=== PATIENT | female | born 1970 | race Caucasian/White ===

== ENCOUNTER 2016-05-05 07:30 | Observation (INO) | payer BC ==
[2016-10-14] MEDS ORDERED: ceFAZolin 2 GM/DEXTROSE 100 ML IV ONE (06:00)
[2016-10-14] MEDS ORDERED: LIDOCAINE 1% 5 ML SDV ONE (06:39)
[2016-10-14] MEDS ORDERED: LR 1,000 ML IV ONE (06:57)
[2016-10-14] MEDS ORDERED: LIDOCAINE 1% 5 ML SDV ID PRN (06:57)
[2016-10-14] MEDS ORDERED: MIDAZOLAM 2 MG/2 ML VIAL ONE (07:09)
[2016-10-14] MEDS ORDERED: SCOPOLAMINE HYDROBROMIDE 1.5 MG PATCH TD ONE (07:09)
[2016-10-14] MEDS ORDERED: fentaNYL 250 MCG/5 ML INJ ONE (07:12)
[2016-10-14] MEDS ORDERED: PROPOFOL 200 MG/20 ML VIAL ONE (07:12)
[2016-10-14] MEDS ORDERED: DEXAMETHASONE 4 MG/ML VIAL ONE (07:13)
[2016-10-14] MEDS ORDERED: ONDANSETRON 4 MG/2 ML VIAL ONE (07:13)
[2016-10-14] MEDS ORDERED: LIDOCAINE 2% 5 ML SDV ONE (07:13)
[2016-10-14] MEDS ORDERED: ROCURONIUM 100 MG/10 ML VIAL ONE (07:14)
[2016-10-14] MEDS ORDERED: VASOPRESSIN 20 UNIT/ML VIAL ONE (07:20)
[2016-10-14] MEDS ORDERED: BUPIVACAINE 0.25% 30 ML SDV ONE (07:20)
[2016-10-14] MEDS ORDERED: LIDOCAINE 1% 30 ML SDV ONE (07:22)
[2016-10-14] MEDS ORDERED: METHYLENE BLUE 0.5% 50 MG/10 ML AMP ONE (07:23)
[2016-10-14] MEDS ORDERED: ONDANSETRON 4 MG/2 ML VIAL IVP PRN (07:54)
[2016-10-14] MEDS ORDERED: LR 1,000 ML IV SCH (08:00)
[2016-10-14] MEDS ORDERED: epHEDrine SULFATE 10 MG/ML SYR ONE (09:30)
[2016-10-14] MEDS ORDERED: SUGAMMADEX SODIUM 200 MG/2 ML VIAL IVP ONE (10:06)
--- NOTE | 2016-10-14 11:03 | POSTOPPROG ---
Post Op Note Date of Operation: 10/14/16 Surgeon: Brenda Del Valle Chef Broiler Or Fry: Verónica Arce Anesthesia: GET(General Endotracheal) Pre-op Diagnosis: fibroid uterus, menorrhagia Post-op Diagnosis: same Indication: menorrhagia Procedure: LAVH, bilateral salpingectomy, right oopherectomy Findings: 14 week sized fibroid uterus, right ovary adhesed and encased in uterus Inf/Abcess present in the surg proc area at time of surgery?: No Depth: Deep Incisional (Fascial) EBL: 100-500 Complications: none Specimen(s): Uterus, cervix, bilateral fallopian tubes, right ovary
[2016-10-14] MEDS ORDERED: fentaNYL 100 MCG/2 ML INJ ONE (11:04)
--- NOTE | 2016-10-14 12:11 | GOP ---
[f rep st] OPERATIVE REPORT DATE OF OPERATION: 10/14/2016 SURGEON: Brenda Melendez MD PATROL LADY: Dr. Verónica Ying. ANESTHESIA: General. PREOPERATIVE DIAGNOSIS: Fibroid uterus and menorrhagia. POSTOPERATIVE DIAGNOSIS: Fibroid uterus and menorrhagia. PROCEDURE PERFORMED: Laparoscopic-assisted vaginal hysterectomy, bilateral salpingectomy, right ooph orectomy and cystoscopy. FINDINGS: A 14 week size fibroid uterus with right ovary adhesed to the uterus, normal left ovary, n ormal bladder and normal ureteral jets seen. ESTIMATED BLOOD LOSS: 200 mL. INDICATIONS: Juliette is a 45-year-old female, who had a longstanding history of menorrhagia and previous myomectomy, who continued to have menorrhagia and fibroid uterus and desired definitive surgical man agement. The patient had a normal endometrial biopsy and Pap prior to the procedure. DESCRIPTION OF PROCEDURE: The patient was taken to the operating room. She was prepped and draped i n normal sterile fashion in a low dorsal lithotomy position. A Vora catheter was placed in the dash ent's bladder. A bivalve speculum was placed in the patient's vagina. The anterior aspect of the ce rvix was grasped with a single-tooth tenaculum. A uterine manipulator was placed into the cervical c anal. Prior to the procedure, the patient did receive 2 g of Ancef, and a surgical time-out was perf ormed verifying the patient's name, date of , planned procedure and site. Gloves were changed. The patient's umbilicus was injected with 0.25% Marcaine. A 10 mm incision was made with an 11 blad e scalpel. Subcutaneous tissues were dissected down to the fascia and the fascia was tented up and i ncised with the 15 blade scalpel. The fascia was tagged. The Elsie port was placed in the patient' s abdominopelvic cavity. The patient was placed in Trendelenburg. The abdomen was insufflated. Pietro roximately 5 cm to the patient's right upper umbilicus and 2 cm caudad, the skin was transilluminated and injected with 0.25% Marcaine. A 5 mm incision was made with an 11 blade scalpel. The trocar wa s placed in the patient's pelvic cavity. The same procedure was performed on the patient's left. __ the patient's pelvic cavity revealed a large fibroid uterus with multiple fibroids including at the fundus and posteriorly. She had a normal left fallopian tube and left ovary. However, her r ight ovary was enlarged and was adhesed to the right aspect of the uterus, making it impossible to pe rform surgery at the hysterectomy without removal of the right ovary. The right IP ligament was gras ped, cauterized and cut. The right round ligament was grasped, cauterized, and cut. The anterior an d posterior leaves of the broad ligament were grasped, cauterized and cut. The bladder flap was crea enstor anteriorly, and the bladder was dissected away from the cervix. Then, the cardinal ligament and uterine arteries were grasped, cauterized and cut. The patient's left fallopian tube was grasped. T he mesosalpinx was cauterized and incised. The left round ligament was cauterized and incised. The left utero-ovarian ligament was grasped, cauterized and incised. The anterior and posterior leaves o f the broad ligament were cauterized and incised, and the bladder flap was then dissected further off of the bladder. The cardinal ligament was cauterized and cut. The vaginal portion then took place. The patient was placed in high lithotomy position. A short weighted speculum placed in the patient 's vagina. The anterior aspect of the cervix was grasped with a single-tooth tenaculum. The cervica l vaginal junction was injected with dilute vasopressin. A circumferential incision was made with a 10 blade scalpel. The vagina was dissected anteriorly and posteriorly off of the cervix. The coat joiner lockstitch ior peritoneum was identified and entered in bluntly. Then a long weighted speculum was placed in th e posterior cul-de-sac. The bladder was then further dissected after the anterior aspect of the cerv ix. The uterosacral ligaments were bilaterally clamped, cut, and suture ligated, and the remaining c ardinal ligaments were bilaterally clamped, cut, and suture ligated. At this point, the anterior cul -de-sac had been entered ,and morcellation took place. The uterus was removed in pieces with morcell ation. The posterior cuff was then reapproximated to the vaginal epithelium. The vagina was closed with 0 Vicryl in a running locked fashion. Gown and gloves were changed. Laparoscopy was then perfo rmed to verify hemostasis of the pelvic cuff and the ligaments and the pedicles, and copious irrigati on was performed. The patient had no evidence of bleeding. The laparoscopic trocars were then remov ed under direct visualization. The abdomen was exsufflated. The fascia was reapproximated with 0 Vi cryl. The skin was closed with 4-0 Monocryl and covered with Steri-Strips and Band-Aids. Cystoscopy was performed. The patient received methylene blue. Bilateral ureteral jets were seen. The Vora catheter was replaced. The vaginal cuff was reinspected and noted to be hemostatic. The patient kaylie erated the procedure well, and was stable to recovery room. COMPLICATIONS: None. OUTCOME: Stable to the recovery room. /[id number]/MODL
[2016-10-14] MEDS: KETOROLAC 30 MG/1 ML SDV IVP SCH ×2 (12:27→18:45)
[2016-10-14] MEDS: HYDROCODONE/APAP 5/325 TAB PO PRN ×2 (16:17→19:53)
[2016-10-15] MEDS: HYDROCODONE/APAP 5/325 TAB PO PRN ×2 (01:02→06:32)
[2016-10-15] MEDS: KETOROLAC 30 MG/1 ML SDV IVP SCH (01:03)
[2016-10-15 06:20] LABS: % IMMATURE GRANULYOCYTES 0.4 % (0.0-1.1); ABSOLUTE IMMATURE GRANULOCYTES 0.03 10^3/uL (0.00-0.10); ADD DIFF? NO; ADD MORPH? NO; ADD SCAN? NO; ATYPICAL LYMPHOCYTE FLAG 0 (0-99); FRAGMENT RBC FLAG 0 (0-99); HEMOGLOBIN 10.5 g/dL (12.6-16.3); LEFT SHIFT FLG 0 (0-99); LIPEMIA HEMOLYSIS FLAG 80 (0-99); MEAN CELL HEMOGLOBIN 31.3 pg (27.9-34.1); MEAN CELL HEMOGLOBIN CONCENTR. 32.8 g/dL (32.4-36.7); MEAN CELL VOLUME 95.5 fL (81.5-99.8); MEAN PLATELET VOLUME 9.7 fL (8.7-11.7); PLATELET CLUMPS FLAG 0 (0-99); PLATELET COUNT 193 10^3/uL (150-400); RED BLOOD CELL COUNT 3.35 10^6/uL (4.18-5.33); RED CELL DISTRIBUTION WIDTH 12.7 % (11.5-15.2)
--- NOTE | 2016-10-15 07:36 | SOAPPROG ---
SOAP Progress Note Assessment/Plan: Assessment: 45 yo female s/p lavh/rso, left salpingectomy for fibroid uterus, menorrhagia, pod 1, doing well. Plan: 10/15/16 07:35 Hemodynamically stable. Routine postop care. Home today. Subjective: 45 yo female s/p lavh/rso, left salpingectomy for fibroid uterus, menorrhagia, pod 1, doing well. Ambulating, pain well controlled. Objective: Vital Signs Temp Pulse Resp BP Pulse Ox 36.4 C 50 L 18 99/63 L 96 10/15/16 06:31 10/15/16 06:31 10/15/16 06:31 10/15/16 06:31 10/15/16 06:31 Laboratory Results 10/15/16 06:05 10/14/16 10/15/16 10/16/16 05:59 05:59 05:59 Intake Total 1925 Output Total 1450 375 Balance 475 -375 Physical Exam - Physical Exam General Appearance: no apparent distress Respiratory: lungs clear Cardiac/Chest: regular rate, rhythm Abdomen: non-tender Skin: warm/dry Extremities: non-tender Neuro/Psych: oriented x 3
[2016-10-15] MEDS ORDERED: IBUPROFEN 600 MG TAB PO SCH (07:56)
[2016-10-15 08:30] VITALS: RESP 16
[2016-10-15] MEDS ORDERED: KETOROLAC 30 MG/1 ML SDV IVP SCH (08:30)
--- NOTE | 2016-10-15 09:14 | GDS ---
[f rep st] DISCHARGE SUMMARY DISCHARGE DIAGNOSIS: Menorrhagia and fibroid uterus, status post laparoscopic-assisted vaginal hyste rectomy and right salpingo-oophorectomy and left salpingectomy. HISTORY OF PRESENT ILLNESS: The patient is a 45-year-old female, who had long-standing history of fi broid uterus and menorrhagia, had previously undergone a myomectomy without improvement in her sympto ms and desired definitive surgical management. The patient underwent a laparoscopic-assisted vaginal hysterectomy, right salpingo-oophorectomy and left salpingectomy. Oophorectomy was performed second crystal to the right ovary being adhesed to the uterus. She lost approximately 200 mL of EBL. Postopera tively, she was doing well. She was ambulating, she was voiding. Her pain was well tolerated. She was tolerating p.o. intake. DISCHARGED EXAM: VITAL SIGNS: Stable. GENERAL: She is no apparent distress. HEART: Regular rate and rhythm. LUNGS: Clear to auscultation. ABDOMEN: Soft, nontender. She has bowel sounds presen t. Her incisions are clean, dry, and intact. Discharge hematocrit is 32%. DISCHARGE INSTRUCTIONS: Including nothing in the vagina for 6 weeks. No heavy lifting for 6 weeks. Call for fever, chills, or heavy vaginal bleeding. DISCHARGE MEDICATIONS: Which she had already received are Zofran 4 mg p.o. q.4 hours p.r.n. nausea, [place] 1-2 p.o. q.4 hours p.r.n. pain, and ibuprofen 600 mg p.o. q.6 hours p.r.n. pain. FOLLOWUP: Follow up is in 2 weeks with me. /[id number]/MODL
[2016-10-15 12:03] VITALS: BP 122/57; PULSE 52; TEMP 97.6; O2SAT 94
== END 2016-10-15 16:05 | disposition home or self-care (01) ==
LOC: F3E 10-14 06:09 → FOB 10-14 12:00
PROVIDERS: ADMIT Obstetrics & Gynecology; ATTEND Obstetrics & Gynecology
PROC: 0UTC7ZZ Resection of Cervix, Via Natural or Artificial Opening (ICD-10-PCS; principal; 2016-10-14 07:15)
PROC: 0UT97ZZ Resection of Uterus, Via Natural or Artificial Opening (ICD-10-PCS; principal; 2016-10-14 07:15)
PROC: 0UT0FZZ Resection of Right Ovary, Via Natural or Artificial Opening With Percutaneous Endoscopic Assistance (ICD-10-PCS; principal; 2016-10-14 07:15)
PROC: 0UT7FZZ Resection of Bilateral Fallopian Tubes, Via Natural or Artificial Opening With Percutaneous Endoscopic Assistance (ICD-10-PCS; principal; 2016-10-14 07:15)
DX: N92.0 Excessive and frequent menstruation with regular cycle (principal); D25.9 Leiomyoma of uterus, unspecified; K21.9 Gastro-esophageal reflux disease without esophagitis; E03.9 Hypothyroidism, unspecified
CPT/HCPCS: 58554; G0378; J0690; J1100; J1885; J2250; J2405; J2704; J3010; Q9968

== ENCOUNTER → 2017-03-24 | Outpatient (CLI) | payer BC | LOC: FIMAGING 07:41 | PROVIDERS: ATTEND Obstetrics & Gynecology | DX: Z12.31 Encounter for screening mammogram for malignant neoplasm of breast (principal); Z80.3 Family history of malignant neoplasm of breast | CPT/HCPCS: G0202 ==

== ENCOUNTER → 2018-03-13 | Outpatient (CLI) | payer OTHER | LOC: FIMAGING 07:45 | PROVIDERS: ATTEND Obstetrics & Gynecology | DX: Z12.31 Encounter for screening mammogram for malignant neoplasm of breast (principal); Z80.3 Family history of malignant neoplasm of breast ==

== ENCOUNTER → 2019-03-22 | Outpatient (CLI) | payer OTHER | LOC: FIMAGING 08:12 ==